=== PATIENT | male | born 1965 | race American Indian/Alaskan Native ===

== ENCOUNTER 2018-08-17 14:36 | Emergency (ER) | payer SELFPAY ==
[2018-08-17] MEDS ORDERED: methylPREDNISolone Sodium Succinate 125 MG/2 ML SDV IM ONE (16:01)
[2018-08-17] MEDS ORDERED: Albuterol/Ipratropium 3.0-0.5 MG/3 ML Neb Soln NEB PRN (16:01)
--- NOTE | 2018-08-17 16:37 | EDM.PDOC ---
<Gabriela Umaña - Last Filed: 08/17/18 16:54> ED HPI GENERAL MEDICAL PROBLEM - General Chief Complaint: Respiratory Problem Stated Complaint: RESPIRATORY ISSUES Time Seen by Provider: 08/17/18 15:42 Source of Information: Reports: Patient History Limitations: Reports: No Limitations - History of Present Illness INITIAL COMMENTS - FREE TEXT/NARRATIVE: 52 y/o Male presents to ER with cc cough and congestion for the past 6 days. He was seen by his PCP 6 days ago and started on Cephalexin. He was seen yesterday at [facility] and started on a Z-robert. He presents today with concerns that he is not getting better. He reports he has been taking cough syrup with codeine and using a Albuterol inhaler but feels he is not getting better. He denies any fever or chills. He reports not being around anyone else who has been ill. 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 (see below) - Related Data Allergies Allergy/AdvReac Type Severity Reaction Status Date / Time No Known Allergies Allergy Verified 08/17/18 15:29 Home Meds: Home Meds Acetaminophen [Tylenol Extra Strength] 500 mg PO Q6H PRN 08/17/18 [History] Azithromycin [Zithromax] 250 mg PO DAILY 08/17/18 [History] Metoprolol Succinate 25 mg PO DAILY 08/17/18 [History] Promethazine HCl/Codeine [Prometh-Codein 6.25-10 mg/5 ml] 5 - 10 ml PO Q6H PRN 08/17/18 [History] atorvaSTATin Calcium [Lipitor] 40 mg PO BEDTIME 08/17/18 [History] cephALEXin [Keflex] 500 mg PO TID 08/17/18 [History] predniSONE [Prednisone] 40 mg PO DAILY 5 Days #5 tablet 08/17/18 [Rx] Past Medical History Cardiovascular History: Reports: High Cholesterol, Hypertension Musculoskeletal History: Reports: Other (See Below) Other Musculoskeletal History: edison to left lower leg - Past Surgical History GI Surgical History: Reports: Appendectomy, Cholecystectomy Social & Family History - Tobacco Use Smoking Status *Q: Current Every Day Smoker Years of Tobacco use: 2 Packs/Tins Daily: 0.1 - Caffeine Use Caffeine Use: Reports: Coffee, Soda - Recreational Drug Use Recreational Drug Use: No ED ROS GENERAL - Review of Systems Review Of Systems: ROS reveals no pertinent complaints other than HPI. Constitutional: Reports: Fatigue. Denies: Fever, Chills HEENT: Reports: No Symptoms Respiratory: Reports: Shortness of Breath, Cough, Sputum Cardiovascular: Denies: Chest Pain Endocrine: Reports: No Symptoms GI/Abdominal: Reports: No Symptoms : Reports: No Symptoms Musculoskeletal: Reports: No Symptoms Skin: Reports: No Symptoms Neurological: Reports: No Symptoms Psychiatric: Reports: No Symptoms Hematologic/Lymphatic: Reports: No Symptoms Immunologic: Reports: No Symptoms ED EXAM, GENERAL - Physical Exam Exam: See Below Exam Limited By: No Limitations General Appearance: Alert, WD/WN, No Apparent Distress Ears: Normal External Exam, Normal Canal, Hearing Grossly Normal, Normal TMs Nose: Normal Inspection, Normal Mucosa, No Blood Throat/Mouth: Normal Inspection, Normal Lips, Normal Teeth, Normal Gums, Normal Oropharynx, Normal Voice, No Airway Compromise Neck: Normal Inspection, Supple, Non-Tender, Full Range of Motion Respiratory/Chest: Decreased Breath Sounds, Wheezing Cardiovascular: Normal Peripheral Pulses, Regular Rate, Rhythm, No Edema, No Gallop, No JVD, No Murmur, No Rub Back Exam: Normal Inspection Extremities: Normal Inspection, Normal Range of Motion, Non-Tender, No Pedal Edema, Normal Capillary Refill Neurological: Alert, Oriented, Normal Cognition, Normal Gait, Normal Reflexes, No Motor/Sensory Deficits Psychiatric: Normal Affect, Normal Mood Skin Exam: Warm, Dry, Intact, Normal Color, No Rash Lymphatic: No Adenopathy Course - Vital Signs Last Recorded V/S: Last Vital Signs Temp 36.5 C 08/17/18 15:27 Pulse 96 08/17/18 15:27 Resp 20 08/17/18 15:27 BP 161/105 H 08/17/18 15:27 Pulse Ox 94 L 08/17/18 16:10 - Orders/Labs/Meds Orders: Active Orders 24 hr Category Date Time Status RT Aerosol Therapy [RC] ASDIRECTED Care 08/17/18 16:01 Active Albuterol/Ipratropium [DuoNeb 3.0-0.5 MG/3 ML] Med 08/17/18 16:01 Active 3 ml NEB Q2H PRN Medication Orders Albuterol/Ipratropium (Duoneb 3.0-0.5 Mg/3 Ml) 3 ml NEB Q2H PRN PRN Reason: Cough Last Admin: 08/17/18 16:09 Dose: 3 ml Meds: Medications Generic Name Dose Route Start Last Admin Trade Name Freq PRN Reason Stop Dose Admin Albuterol/Ipratropium 3 ml 08/17/18 16:01 08/17/18 16:09 Duoneb 3.0-0.5 Mg/3 Ml NEB 3 ml Q2H PRN Administration Cough Discontinued Medications Generic Name Dose Route Start Last Admin Trade Name Freq PRN Reason Stop Dose Admin Methylprednisolone Sodium Succinate 125 mg 08/17/18 16:01 08/17/18 16:21 Solu-Medrol IM 08/17/18 16:02 125 mg ONETIME ONE Administration - Re-Assessments/Exams Free Text/Narrative Re-Assessment/Exam: 08/17/18 16:43 I don't feel the patient needs a repeat chest x-ray at this time. He received a neb treatment and Solu-Medrol and his condition improved. Free Text/Narrative Re-Assessment/Exam: 08/17/18 16:49 Patient reports he feels better and is ready to go home. I will discharge home with Prednisone. Departure - Departure Time of Disposition: 16:50 Disposition: Home, Self-Care 01 Condition: Good Clinical Impression: Acute bronchiolitis Qualifiers: Bronchiolitis organism: other organism Qualified Code(s): J21.8 - Acute bronchiolitis due to other specified organisms - Discharge Information *PRESCRIPTION DRUG MONITORING PROGRAM REVIEWED*: Not Applicable *COPY OF PRESCRIPTION DRUG MONITORING REPORT IN PATIENT JAGDEEP: Not Applicable Prescriptions: predniSONE [Prednisone] 40 mg PO DAILY 5 Days #5 tablet Instructions: Upper Respiratory Infection, Adult, [id number] Referrals: PCP,Not In Area [Primary Care Provider] - Forms: ED Department Discharge Additional Instructions: Continue to take azithromycin as prescribed. Follow up with your PCP. Return to the ER for any new or acute worsening symptoms. <Ernie Ramirez - Last Filed: 08/17/18 17:24> Course - Radiology Interpretation Free Text/Narrative:: I supervised the LUBNA Umaña and I agree with the patient's management plan and treatment as was described to me. Agree fully with diagnosis and treatment plan.
== END 2018-08-17 17:40 | disposition home or self-care (01) ==
LOC: JD.ED 14:36
DX: J21.8 Acute bronchiolitis due to other specified organisms (principal); I10 Essential (primary) hypertension; F17.210 Nicotine dependence, cigarettes, uncomplicated
CPT/HCPCS: 94640; 96372; 99283; J2930; J7620-GY

== ENCOUNTER 2018-08-22 14:44 | Emergency (ER) | payer BC ==
[2018-08-22] MEDS ORDERED: Albuterol 0.083% 2.5 MG/3 ML Neb Soln NEB ONE (16:43)
[2018-08-22] MEDS ORDERED: Benzonatate 100 MG Cap PO ONE (16:43)
--- NOTE | 2018-08-22 16:56 | EDM.PDOC ---
ED HPI GENERAL MEDICAL PROBLEM - General Chief Complaint: Respiratory Problem Stated Complaint: NOT GETTING BETTER FROM INFECTION Time Seen by Provider: 08/22/18 15:49 Source of Information: Reports: Patient History Limitations: Reports: No Limitations - History of Present Illness INITIAL COMMENTS - FREE TEXT/NARRATIVE: Patient is a 52 year old male who presents to the E.D. complaining of persistent cough, headache, and poor sleep. States he was evaluated in the E.D. 1xwk ago and started on azithromycin, prednisone, and cough syrup with no significant improvements. States he is having coughing fits that do not allow him to rest during the day or evening. With the coughing he at times develops headaches. States the upper respiratory symptoms: runny nose, sinus congestion, and post nasal drip are improving although the cough has not. He is wondering if he may have developed pneumonia and may benefit from another round of antibitics. He denies: fever, chills, n/v, cp, sob, abdominal pain, pnd, orthopnea, palpitations, dizziness, syncopal episode, swelling to lower extremities, increased weight, or any additional complaints. He has no history of DVT/PE, CAD, or DM. PMH includes: HTN and hypercholesteremia. - Related Data Allergies Allergy/AdvReac Type Severity Reaction Status Date / Time No Known Allergies Allergy Verified 08/22/18 15:12 Home Meds: Home Meds Acetaminophen [Tylenol Extra Strength] 500 mg PO Q6H PRN 08/17/18 [History] Azithromycin [Zithromax] 250 mg PO DAILY 08/17/18 [History] Metoprolol Succinate 25 mg PO DAILY 08/17/18 [History] Promethazine HCl/Codeine [Prometh-Codein 6.25-10 mg/5 ml] 5 - 10 ml PO Q6H PRN 08/17/18 [History] atorvaSTATin Calcium [Lipitor] 40 mg PO BEDTIME 08/17/18 [History] predniSONE [Prednisone] 40 mg PO DAILY 5 Days #5 tablet 08/17/18 [Rx] Benzonatate [Tessalon Perle] 100 mg PO BID PRN #20 capsule 08/22/18 [Rx] Doxycycline [Vibramycin] 100 mg PO BID #20 cap 08/22/18 [Rx] Past Medical History Cardiovascular History: Reports: High Cholesterol, Hypertension Musculoskeletal History: Reports: Other (See Below) Other Musculoskeletal History: edison to left lower leg - Past Surgical History GI Surgical History: Reports: Appendectomy, Cholecystectomy Social & Family History - Caffeine Use Caffeine Use: Reports: Coffee, Soda ED ROS GENERAL - Review of Systems Review Of Systems: ROS reveals no pertinent complaints other than HPI. ED EXAM, GENERAL - Physical Exam Exam: See Below Exam Limited By: No Limitations General Appearance: Alert, WD/WN, No Apparent Distress Ears: Hearing Grossly Normal Nose: Normal Inspection Throat/Mouth: Normal Inspection, Normal Oropharynx, Normal Voice, No Airway Compromise Head: Atraumatic, Normocephalic Neck: Normal Inspection, Supple Respiratory/Chest: No Respiratory Distress, Lungs Clear, Normal Breath Sounds, No Accessory Muscle Use, Chest Non-Tender Cardiovascular: Normal Peripheral Pulses, Regular Rate, Rhythm, No Murmur Peripheral Pulses: 2+: Radial (L), Radial (R) GI/Abdominal: Normal Bowel Sounds, Soft, Non-Tender, No Organomegaly, No Distention Back Exam: Normal Inspection. No: CVA Tenderness (L), CVA Tenderness (R) Extremities: Normal Inspection, Normal Range of Motion, Non-Tender, Pedal Edema (chronic unchanged per patient. ) Neurological: Alert, Oriented, CN II-XII Intact, Normal Cognition, No Motor/ Sensory Deficits Course - Vital Signs Last Recorded V/S: Last Vital Signs Temp 97.1 F 08/22/18 15:13 Pulse 88 08/22/18 15:13 Resp 18 08/22/18 15:13 BP 178/101 H 08/22/18 15:13 Pulse Ox 96 08/22/18 17:08 - Orders/Labs/Meds Meds: Medications Discontinued Medications Generic Name Dose Route Start Last Admin Trade Name Freq PRN Reason Stop Dose Admin Acetaminophen 975 mg 08/22/18 17:27 08/22/18 17:47 Tylenol PO 08/22/18 17:28 975 mg NOW ONE Administration Albuterol 2.5 mg 08/22/18 16:43 08/22/18 17:08 Proventil Neb Soln NEB 08/22/18 16:44 2.5 mg ONETIME ONE Administration Benzonatate 200 mg 08/22/18 16:43 08/22/18 17:02 Tessalon Perles PO 08/22/18 16:44 200 mg ONETIME ONE Administration - Re-Assessments/Exams Free Text/Narrative Re-Assessment/Exam: I have ordered Tylenol 975 mg by mouth for headache. Albuterol and Atrovent 2.5 mg. Tessalon Perles 200 mg by mouth along with a chest x-ray two-view. Offered to obtain labs to which the patient refuses. Chest x-ray reviewed with Dr. Solitario with concerns of left lower lobe pneumonia. Ordered doxycycline 100 mg by mouth. Patient's not hypoxic. Vital signs are stable. He is afebrile. States he felt better after the albuterol neb tx. He will be discharged home with prescription for doxycycline 100 mg twice a day for 10 days. While the patient continue taking the Mucinex, Tessalon Perles, and Phenergan With Codeine for cough. Return precautions discussed with patient. He had no further concerns and agreed with plan. Departure - Departure Time of Disposition: 18:30 Disposition: Home, Self-Care 01 Condition: Good Clinical Impression: Pneumonia Qualifiers: Pneumonia type: due to unspecified organism Laterality: left Lung location: lower lobe of lung Qualified Code(s): J18.1 - Lobar pneumonia, unspecified organism Hypertension Qualifiers: Hypertension type: essential hypertension Qualified Code(s): I10 - Essential ( primary) hypertension - Discharge Information Prescriptions: Benzonatate [Tessalon Perle] 100 mg PO BID PRN #20 capsule PRN Reason: Cough Doxycycline [Vibramycin] 100 mg PO BID #20 cap Instructions: Upper Respiratory Infection, Adult, [id number], Community- Acquired Pneumonia, Adult Referrals: Asad Hager DO [Primary Care Provider] - Forms: ED Department Discharge Additional Instructions: Take the Tessalon Perles as prescribed for cough. In addition will have you take doxycycline 100 milligrams twice a day for the next 10 days. Continue to utilize the Phenergan With Codeine at night for the cough as well. After taking Mucinex 600 mg twice a day for the next 10 days. Suggest seeing your PCP in next 3-5 days for reevaluation. Blood pressure was elevated with admission and should be trended to ensure you do not need further modifications to blood pressure meds. Please return to the ED at any time if you develop any new or worsening symptoms.
[2018-08-22] MEDS ORDERED: Acetaminophen 325 MG Tab PO ONE (17:27)
--- NOTE | 2018-08-23 08:40 | CR ---
Chest: Two views of the chest were obtained. Comparison: No prior chest x-ray. Heart is mildly enlarged. Tortuous thoracic aorta is seen. Pulmonary vessels are felt to be mildly congested. Lungs otherwise are clear. Deformity is noted to the right fourth rib either due to previous trauma or previous surgery. Impression: 1. Findings suspicious for early CHF. 2. Other incidental findings. Diagnostic code #3
== END 2018-08-22 19:01 | disposition home or self-care (01) ==
LOC: SUPCPDRO 14:44 → JD.ED 14:44
DX: J18.1 Lobar pneumonia, unspecified organism (principal); I10 Essential (primary) hypertension; E78.00 Pure hypercholesterolemia, unspecified; Z79.899 Other long term (current) drug therapy
CPT/HCPCS: 71046; 94640; 99283; A9270

== ENCOUNTER 2021-03-15 20:19 | Emergency (ER) | payer BC ==
[2021-03-15] MEDS ORDERED: Tenecteplase 50 MG Kit ONE (20:25)
[2021-03-15] MEDS ORDERED: Tenecteplase 50 MG Kit IV ONE (20:30)
[2021-03-15] MEDS ORDERED: Nitroglycerin/D5W 25 MG/250 ML BOTTLE ONE (20:35)
[2021-03-15] MEDS ORDERED: Metoprolol Tartrate 5 MG in Sodium Chloride 0.9% 50 ML IV ONE ×2 (20:36→21:25)
[2021-03-15] MEDS ORDERED: Heparin Sodium 5,000 Units/ML Vial IVPUSH ONE (20:38)
[2021-03-15] MEDS ORDERED: Metoprolol Tartrate 5 MG/5 ML SDV ONE (20:40)
[2021-03-15] MEDS ORDERED: Heparin Sodium/D5W 500 ML ONE (20:40)
[2021-03-15] MEDS ORDERED: Heparin Sodium 5,000 Units/ML Vial ONE (20:40)
[2021-03-15] MEDS ORDERED: Metoprolol Tartrate 5 MG/5 ML SDV IVPUSH ONE ×2 (20:41→21:54)
[2021-03-15] MEDS ORDERED: Heparin Sodium/D5W 25,000 UNITS/500 ML BAG IV SCH (20:45)
[2021-03-15] MEDS ORDERED: Nitroglycerin/D5W 25 MG/250 ML BOTTLE IV SCH (20:45)
--- NOTE | 2021-03-15 21:12 | EDM.PDOC ---
ED HPI GENERAL MEDICAL PROBLEM - General Chief Complaint: Chest Pain Stated Complaint: MARK DUKES Time Seen by Provider: 03/15/21 20:25 Source of Information: Reports: Patient, EMS, EMS Notes Reviewed, Old Records History Limitations: Reports: No Limitations - History of Present Illness INITIAL COMMENTS - FREE TEXT/NARRATIVE: Patient presents with acute onset of chest pain. He actually was seen and evaluated by EMS yesterday in the evening. He apparently had eaten some fried kidneys the day before and had substernal chest pain he had an EKG done yesterday did not show any ST elevation but did not want to go to the hospital. He was feeling better and then today he was running horses and when he was closing the gait he had onset of left-sided chest pain into the left axilla and into the back. He started to feel some nausea and and weakness. He was out 30 minutes from his home and called 911 and on their arrival her EKG shows ST elevation changes in the anterolateral leads, with deep inverted T waves. He was given a full dose 324 aspirin and nitro. On arrival his chest pain was persistent and repeat EKG showed his persistent ST elevation no reciprocal gimenez ges noted. Patient is known to have had coronary disease based on coronary CT in the past. He has high cholesterol but has not been on any lipid-lowering medicines but otherwise has been compliant with his metoprolol lisinopril on a 81 mg aspirin. No lightheadedness or fainting spell no coughing cold symptoms fevers chills or sweats no vomiting or diarrhea. Onset: Sudden Quality: Reports: Ache - Related Data Allergies Allergy/AdvReac Type Severity Reaction Status Date / Time No Known Allergies Allergy Verified 03/15/21 20:24 Home Meds: Home Meds Acetaminophen [Tylenol Extra Strength] 500 mg PO Q6H PRN 08/17/18 [History] Azithromycin [Zithromax] 250 mg PO DAILY 08/17/18 [History] Metoprolol Succinate 25 mg PO DAILY 08/17/18 [History] Promethazine HCl/Codeine [Prometh-Codein 6.25-10 mg/5 ml] 5 - 10 ml PO Q6H PRN 08/17/18 [History] atorvaSTATin Calcium [Lipitor] 40 mg PO BEDTIME 08/17/18 [History] predniSONE [Prednisone] 40 mg PO DAILY 5 Days #5 tablet 08/17/18 [Rx] Benzonatate [Tessalon Perle] 100 mg PO BID PRN #20 capsule 08/22/18 [Rx] Doxycycline [Vibramycin] 100 mg PO BID #20 cap 08/22/18 [Rx] Past Medical History Cardiovascular History: Reports: Heart Failure, High Cholesterol, Hypertension Musculoskeletal History: Reports: Fracture, Other (See Below) Other Musculoskeletal History: edison to left lower leg Endocrine/Metabolic History: Reports: Obesity/BMI 30+ - Past Surgical History GI Surgical History: Reports: Appendectomy, Cholecystectomy Musculoskeletal Surgical History: Reports: ORIF Social & Family History - Tobacco Use Tobacco Use Status *Q: Current Every Day Tobacco User Years of Tobacco use: 3 Packs/Tins Daily: 0.2 - Caffeine Use Caffeine Use: Reports: Coffee, Soda - Recreational Drug Use Recreational Drug Use: No ED ROS GENERAL - Review of Systems Review Of Systems: See Below Constitutional: Denies: Fever, Chills HEENT: Denies: Rhinitis Respiratory: Denies: Shortness of Breath, Cough Cardiovascular: Reports: Chest Pain, Blood Pressure Problem, Lightheadedness. Denies: PND GI/Abdominal: Reports: Nausea. Denies: Abdominal Pain, Diarrhea, Vomiting Musculoskeletal: Denies: Neck Pain Neurological: Reports: No Symptoms Psychiatric: Reports: Anxiety ED EXAM, GENERAL - Physical Exam Exam: See Below Exam Limited By: No Limitations General Appearance: Alert, WD/WN, Mild Distress Throat/Mouth: Normal Inspection, Normal Oropharynx Head: Atraumatic, Normocephalic Neck: Normal Inspection, Supple, Non-Tender Respiratory/Chest: No Respiratory Distress, Lungs Clear, Normal Breath Sounds Cardiovascular: Normal Peripheral Pulses, Regular Rate, Rhythm, No Edema, No JVD GI/Abdominal: Normal Bowel Sounds, Soft, Non-Tender, Distended Extremities: Normal Inspection, Pedal Edema Neurological: Alert, Oriented Psychiatric: Normal Affect, Anxious Skin Exam: Warm, Dry. No: Diaphoretic ED CARDIOLOGY PROCEDURES - Additional/Other Procedure(s) Other (Free Text) Procedure(s): Critical care time mildly 40 minutes Was spent talking to prehospital personnel prior to patient's arrival, talking with the transfer call center at [place], multiple discussions with Dr. Paredes the bag checker, multiple reevaluations the patient at the bedside given TNKase for thrombolytic for his ST elevated HI follow-up on his vital signs, monitoring his pressure and cardiovascular output as well as oxygenation, arranging transport by air ambulance and spending time at the bedside talking the patient and family regarding the critical nature of his illness. #1 Interpretation EKG Date: 03/15/21 Time: 08:23 Rhythm: A-Flutter EKG Interpretation Comments: The EKG showing sinus rhythm rate of 94 KS is 146 QRS is 86 QT corrected 551 does have LVH based on voltage criteria does have ST elevation of the anterior lateral leads with deep inverted T waves in same leads no reciprocal changes noted. #2 Interpretation EKG Date: 03/15/21 EKG Interpretation Comments: Second EKG at 8:47 PM shows I reviewed and shows sinus rhythm rate of 83 KS 151 QRS is 87 QT corrected [address] changes have flattened however he still has deep inverted T waves. His QT is still prolonged at 539. Course - Vital Signs Text/Narrative:: ST elevated HI prehospital direction given and patient was brought in by [facility] ambulance service. He had been given his 324 aspirin and nitro. Blood pressure was low but better his chest pain was persistent on arrival however. No c ontraindications to TNKase. I already had discussed prior to patient's arrival here at the hospital with the bag checker Dr. Venegas at [facility] in [place]. Able to review the EKG and the air med was started in route. I will patient was seen on arrival and had a repeat EKG had IV started, reviewed risk benefits and alternatives to TNKase with the patient and he agreeable and understands the any risks. He was given the TNKase followed by bolus of heparin 4000 units and started on 1000 unit an hour drip he was also given nitroglycerin drip for pain and a dose of metoprolol 5 mg IV post thrombolytic his EKG repeated showed 9 with normal sinus rhythm he still had persistent deep inverted T waves anterior leads but no ST elevation. His troponin did come back at 0.788. His vital signs otherwise have improved with his blood pressure 144/80 pulse is 85 sats 96% on room air. Updated his family at the bedside, plan is to transfer to higher level care for heart cath and possible stents patient understands the risks and benefits of flying and this is a time-based intervention. Last Recorded V/S: Last Vital Signs Temp 97.2 F 03/15/21 20:29 Pulse 87 03/15/21 21:55 Resp 19 03/15/21 20:29 BP 155/98 H 03/15/21 21:55 Pulse Ox 94 L 03/15/21 20:29 - Orders/Labs/Meds Orders: Active Orders 24 hr Category Date Time Status EKG 12 Lead [EK] Stat Ther 03/15/21 20:25 Ordered EKG 12 Lead [EK] Stat Ther 03/15/21 20:52 Ordered Labs: Laboratory Tests 03/15/21 03/15/21 03/15/21 Range/Units 20:25 20:25 20:25 WBC 11.45 H (4.23-9.07) K/mm3 RBC 5.58 (4.63-6.08) M/mm3 Hgb 15.1 (13.7-17.5) gm/dl Hct 47.2 (40.1-51.0) % MCV 84.6 (79.0-92.2) fl MCH 27.1 (25.7-32.2) pg MCHC 32.0 L (32.2-35.5) g/dl RDW Std Deviation 41.9 (35.1-43.9) fL Plt Count 241 (163-337) K/mm3 MPV 11.0 (9.4-12.3) fl Neut % (Auto) 77.1 H (34.0-67.9) % Lymph % (Auto) 16.2 L (21.8-53.1) % [place] % (Auto) 5.1 L (5.3-12.2) % Eos % (Auto) 1.0 (0.8-7.0) Baso % (Auto) 0.3 (0.1-1.2) % Neut # (Auto) 8.82 H (1.78-5.38) K/mm3 Lymph # (Auto) 1.86 (1.32-3.57) K/mm3 [place] # (Auto) 0.58 (0.30-0.82) K/mm3 Eos # (Auto) 0.12 (0.04-0.54) K/mm3 Baso # (Auto) 0.03 (0.01-0.08) K/mm3 PT 10.3 (9.7-12.0) SECONDS INR 0.93 APTT 26.1 (21.7-31.4) SECONDS Sodium 134 L (136-145) mEq/L Potassium 4.0 (3.5-5.1) mEq/L Chloride 98 (98-107) mEq/L Carbon Dioxide 28 (21-32) mEq/L Anion Gap 12.0 (5-15) BUN 12 (7-18) mg/dL Creatinine 1.3 (0.7-1.3) mg/dL Est Cr Clr Drug Dosing 58.61 mL/min Estimated GFR (MDRD) 57 (>60) mL/min BUN/Creatinine Ratio 9.2 L (14-18) Glucose 246 H (70-99) mg/dL Calcium 9.0 (8.5-10.1) mg/dL Total Bilirubin 0.5 (0.2-1.0) mg/dL AST 21 (15-37) U/L ALT 25 (16-63) U/L Alkaline Phosphatase 135 H (46-116) U/L Ammonia (11-32) umol/L Troponin I 0.788 H* (0.00-0.056) ng/mL Total Protein 7.9 (6.4-8.2) g/dl Albumin 3.1 L (3.4-5.0) g/dl Globulin 4.8 gm/dL Albumin/Globulin Ratio 0.7 L (1-2) SARS-CoV-2 RNA (JS) (NEGATIVE) 03/15/21 03/15/21 Range/Units 20:32 20:54 WBC (4.23-9.07) K/mm3 RBC (4.63-6.08) M/mm3 Hgb (13.7-17.5) gm/dl Hct (40.1-51.0) % MCV (79.0-92.2) fl MCH (25.7-32.2) pg MCHC (32.2-35.5) g/dl RDW Std Deviation (35.1-43.9) fL Plt Count (163-337) K/mm3 MPV (9.4-12.3) fl Neut % (Auto) (34.0-67.9) % Lymph % (Auto) (21.8-53.1) % [place] % (Auto) (5.3-12.2) % Eos % (Auto) (0.8-7.0) Baso % (Auto) (0.1-1.2) % Neut # (Auto) (1.78-5.38) K/mm3 Lymph # (Auto) (1.32-3.57) K/mm3 [place] # (Auto) (0.30-0.82) K/mm3 Eos # (Auto) (0.04-0.54) K/mm3 Baso # (Auto) (0.01-0.08) K/mm3 PT (9.7-12.0) SECONDS INR APTT (21.7-31.4) SECONDS Sodium (136-145) mEq/L Potassium (3.5-5.1) mEq/L Chloride (98-107) mEq/L Carbon Dioxide (21-32) mEq/L Anion Gap (5-15) BUN (7-18) mg/dL Creatinine (0.7-1.3) mg/dL Est Cr Clr Drug Dosing mL/min Estimated GFR (MDRD) (>60) mL/min BUN/Creatinine Ratio (14-18) Glucose (70-99) mg/dL Calcium (8.5-10.1) mg/dL Total Bilirubin (0.2-1.0) mg/dL AST (15-37) U/L ALT (16-63) U/L Alkaline Phosphatase (46-116) U/L Ammonia 13 (11-32) umol/L Troponin I (0.00-0.056) ng/mL Total Protein (6.4-8.2) g/dl Albumin (3.4-5.0) g/dl Globulin gm/dL Albumin/Globulin Ratio (1-2) SARS-CoV-2 RNA (JS) Negative (NEGATIVE) Meds: Medications Discontinued Medications Generic Name Dose Route Start Last Admin Trade Name Freq PRN Reason Stop Dose Admin Heparin Sodium (Porcine) 4,000 units 03/15/21 20:38 03/15/21 20:43 Heparin Sodium 5,000 Units/Ml Vial IVPUSH 03/15/21 20:39 4,000 units .BOLUS ONE Administration Heparin Sodium (Porcine) Confirm 03/15/21 20:40 03/15/21 20:45 Heparin Sodium 5,000 Units/Ml Vial Administered 03/15/21 20:41 Not Given Dose 5,000 units .ROUTE .STK-MED ONE Nitroglycerin/Dextrose 25 mg in 250 mls @ 3 mls/hr 03/15/21 20:45 03/15/21 20:39 Nitroglycerin 25 Mg/D5w 250 Ml IV 5 mcg/min TITRATE LOVELY 3 mls/hr Administration Protocol 5 MCG/MIN Nitroglycerin/Dextrose Confirm 03/15/21 20:35 03/15/21 20:39 Nitroglycerin 25 Mg/D5w 250 Ml Administered 03/15/21 20:36 Not Given Dose 25 mg in 250 mls @ as directed .ROUTE .STK-MED ONE Metoprolol Tartrate 5 mg/ 55 mls @ 100 mls/hr 03/15/21 20:36 Sodium Chloride IV 03/15/21 21:08 ONETIME ONE Heparin Sodium/Dextrose 25,000 units in 500 mls @ 28.848 mls/hr 03/15/21 20:45 03/15/21 20:45 Heparin 25,000 Units In D5w 500 Ml IV 12 units/kg/hr TITRATE LOVELY 28.848 mls/hr Administration Protocol 12 UNITS/KG/HR Heparin Sodium/Dextrose Confirm 03/15/21 20:40 03/15/21 20:45 Heparin 25,000 Units In D5w 500 Ml Administered 03/15/21 20:41 Not Given Dose 500 mls @ as directed .ROUTE .STK-MED ONE Metoprolol Tartrate 5 mg/ 55 mls @ 100 mls/hr 03/15/21 21:25 03/15/21 21:54 Sodium Chloride IV 03/15/21 21:57 Not Given ONETIME ONE Magnesium Sulfate/Dextrose 1 100 mls @ 100 mls/hr 03/15/21 21:27 03/15/21 21:54 gm/ Premix IV 03/15/21 22:26 100 mls/hr ONETIME ONE Administration Metoprolol Tartrate 5 mg 03/15/21 20:41 03/15/21 20:42 Metoprolol Tartrate 5 Mg/5 Ml Sdv IVPUSH 03/15/21 20:42 5 mg ONETIME ONE Administration Metoprolol Tartrate Confirm 03/15/21 20:40 03/15/21 20:45 Metoprolol Tartrate 5 Mg/5 Ml Sdv Administered 03/15/21 20:41 Not Given Dose 5 mg .ROUTE .STK-MED ONE Metoprolol Tartrate 5 mg 03/15/21 21:54 03/15/21 21:55 Metoprolol Tartrate 5 Mg/5 Ml Sdv IVPUSH 03/15/21 21:55 5 mg ONETIME ONE Administration Tenecteplase Confirm 03/15/21 20:25 03/15/21 20:39 Tenecteplase 50 Mg Kit Administered 03/15/21 20:26 Not Given Dose 50 mg .ROUTE .STK-MED ONE Tenecteplase 50 mg 03/15/21 20:30 03/15/21 20:25 Tenecteplase 50 Mg Kit IV 03/15/21 20:31 50 mg ONETIME ONE Administration Protocol - Re-Assessments/Exams Free Text/Narrative Re-Assessment/Exam: 03/15/21 21:17 Pro time 10 INR 0.9 PTT is 26 white count 11,400 hemoglobin 15 medical 47.2 platelet count 241,000 sodium 134 potassium 4 chloride 98 CO2 is 28 BUN is 12 creatinine 1.3 GFR is 57 blood sugars 246 alkaline phos 135 troponin 0 0.788 LFTs are normal. Spent a lot of time at the bedside reviewing risk benefits alternatives of transfer but also prior to the TNKase if it is an intervention repeat EKGs were performed and described as above. Departure - Departure Time of Disposition: 19:00 Disposition: DC/Tfer to Acute Hospital 02 Reason for Transfer *Q: Primary PCI Indicated Condition: Serious Clinical Impression: Acute myocardial infarction Qualifiers: Myocardial infarction type: ST elevation myocardial infarction Involved cor onary artery: LAD coronary artery Qualified Code(s): I21.02 - ST elevation (STEMI) myocardial infarction involving left anterior descending coronary artery Referrals: PCP,None [Primary Care Provider] - Forms: ED Department Discharge, Interfacility Transfer DELLA Sepsis Event Note (ED) - Evaluation Sepsis Screening Result: No Definite Risk - My Orders Last 24 Hours: My Active Orders 03/15/21 20:25 EKG 12 Lead [EK] Stat 03/15/21 20:52 EKG 12 Lead [EK] Stat - Assessment/Plan Last 24 Hours: My Active Orders 03/15/21 20:25 EKG 12 Lead [EK] Stat 03/15/21 20:52 EKG 12 Lead [EK] Stat
--- NOTE | 2021-03-16 08:54 | CR ---
Chest: Frontal view of the chest was obtained. Comparison: Prior chest x-ray of 08/22/18. Heart is enlarged. Tortuous thoracic aorta is seen. Mild pulmonary vascular prominence is seen which is stable. Lungs otherwise are clear. Bony structures show nothing acute. Impression: 1. Cardiomegaly and mild chronic pulmonary vascular congestion. 2. Nothing acute is otherwise seen. Diagnostic code #3
== END 2021-03-15 21:45 ==
LOC: JD.ED 20:19
DX: I21.02 ST elevation (STEMI) myocardial infarction involving left anterior descending coronary artery (principal); I11.0 Hypertensive heart disease with heart failure; I50.9 Heart failure, unspecified; E78.00 Pure hypercholesterolemia, unspecified; E66.9 Obesity, unspecified; Z68.41 Body mass index [BMI] 40.0-44.9, adult; Z72.0 Tobacco use; Z79.899 Other long term (current) drug therapy; Z20.822 Contact with and (suspected) exposure to COVID-19
CPT/HCPCS: 36415; 71045; 80053; 82140; 84484; 85025; 85610; 85730; 87635; 93005; 96365; 96368; 96375; 96376; 99285; J1644; J3101; J3475; J3490; U0002